=== PATIENT | female | born 1980 | race American Indian/Alaskan Native ===

== ENCOUNTER 2022-05-02 23:17 | Emergency (ER) | payer OTHER, MEDICAID ==
[2022-05-03] MEDS ORDERED: IBUPROFEN 600 MG TAB PO ONE (04:15)
[2022-05-03] MEDS ORDERED: ACETAMINOPHEN 500 MG TAB PO ONE (04:15)
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
[2022-05-03 06:46] VITALS: BP 129/86
== END 2022-05-03 06:35 | disposition home or self-care (01) ==
LOC: ED 23:17
DX: S93.402A Sprain of unspecified ligament of left ankle, initial encounter (principal); M62.830 Muscle spasm of back; V89.2XXA Person injured in unspecified motor-vehicle accident, traffic, initial encounter; Y93.89 Activity, other specified; Y92.89 Other specified places as the place of occurrence of the external cause; Y99.8 Other external cause status
CPT/HCPCS: 72100; 99283